=== PATIENT | female | born 2000 | race Two or more races ===

== ENCOUNTER 2022-05-15 18:11 | Inpatient (IN) | payer OTHER ==
[~2022-05-15] VITALS: Ht 162.6 cm; Wt 98.9 kg
[2022-05-15] MEDS ORDERED: PRENATAL TABLE1 EAC1 PO (20:36)
== END 2022-05-18 14:17 | disposition home or self-care (01) | DRG 807 ==
LOC: LDR 18:11 → OB/GYN 05-16 18:33
PROVIDERS: ADMIT Obstetrics & Gynecology; ATTEND Obstetrics & Gynecology
PROC: 4A1HXCZ Monitoring of Products of Conception, Cardiac Rate, External Approach (ICD-10-PCS; 2022-05-15)
PROC: 10E0XZZ Delivery of Products of Conception, External Approach (ICD-10-PCS; principal; 2022-05-16)
PROC: 0W8NXZZ Division of Female Perineum, External Approach (ICD-10-PCS; 2022-05-16)
DX: O80 Encounter for full-term uncomplicated delivery (principal); Z37.0 Single live birth; Z3A.39 39 weeks gestation of pregnancy; Z20.822 Contact with and (suspected) exposure to COVID-19